=== PATIENT | male | born 1975 | race Caucasian/White ===

== ENCOUNTER 2017-08-02 14:59 | Outpatient (RCR) | payer OTHER, SELFPAY ==
--- NOTE | 2017-08-02 16:08 | HP.PTEVAL ---
Patient's Visit Information KAREN JONES is a 42 year old M referred to Physical Therapy by Braden Dinero DO DR.[email or web address] with a diagnosis of Left Adhesive Capsulitis. Date of Evaluation: 08/02/17 Physical Therapist: Amalia Ramos - Visit Plan Plan: Hold-will follow up as needed - Subjective Subjective: Left shoulder pain insidious onset- had lots of pain and poor mobility for 3 months. Had cortisone injection 07/[address] Dinero. Is a lot better- the mobility is better. Brother is a PT in [place] who wants him to improve motion. Feels that he is 90% better since injection. 10% is aching here and there. Pain is located in the shoulder no radiating pain at this point. Yoga-@ [employer] (basic vinyasa flow tries to do 1-2x a week) and home- martial arts (2x a week)- grappling- kettle bells (2x a week). Worst: 3/10 Agg: arm overhead. Eases: cortizone injection. Best: 0/10 most of the time. Sleep: not since the injection. 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 - Objective Posture: good throughout. Palpation: not tender to touch. ROM: Shoulder: WFL, Elbow: WNL. Strength: 5/5 throughout. Impingement: positive, Empty Can: negative - Rehabilitation Potential Physical Therapy Diagnosis: He has good ROM strength and muscular endurance in the left UE Rehabilitation Potential: Good - Anticipated Interventions Thank you for the opportunity to evaluate your patient. For Medicare and Medicare HMO plans, please review the plan of care and approve it. It will need to be FAXED BACK to us at [phone] for Medicare purposes. Please let me know if there are questions or concerns regarding this plan of care. Physician Signature: Date:
--- NOTE | 2017-09-18 14:28 | HP.PTDCNRP_ITS ---
HP - Discharge Summary (1) - Patient Information KAREN JONES was seen in my office for initial evaluation on 08/02/17. The following Plan of Care was established for this patient: This patient was last seen in our office . Pertinent comments regarding their Physical therapy will appear below: Patient has not attended physical therapy in over 4 weeks- appropriate to be d/ c at this time. At this point I will be discontinuing this patient from physical therapy. I would be happy to see this patient again in the future if found appropriate by the physician. Thank you! Amalia Ramos
== END 2017-08-02 19:00 | disposition home or self-care (01) ==
LOC: PT 14:59
PROVIDERS: Family Provider Internal Medicine; PCP Internal Medicine; Visit Provider Orthopaedic Surgery
DX: M75.02 Adhesive capsulitis of left shoulder (principal)
CPT/HCPCS: 97110; 97161

== ENCOUNTER → 2021-10-04 | Outpatient (CLI) | payer OTHER, SELFPAY ==
[2021-10-04 18:48] LABS: ALB/GLOB Ratio 1.4 RATIO (0.9-2.4); AST(SGOT) 13 U/L (15-37); Alanine Aminotransfer ALT/SGPT 24 U/L (16-61); Albumin, Serum 4.2 g/dL (3.2-5.0); Alkaline Phosphatase 68 U/L (45-117); Anion Gap 7 (5-15); BUN 26 mg/dL (7-18); BUN/Creat Ratio 24.5 RATIO (10-20); Calcium,Total 8.4 mg/dL (8.5-10.1); Chloride 105 mmol/L (98-107); Creatinine, Serum 1.06 mg/dL (0.70-1.30); EST Glomerular Filtration Rate 79 mL/min (>60); Est Glom Filt Rate - Afr Amer 96 mL/min (>60); Glucose 104 mg/dL (74-106); Protein, Total 7.2 g/dL (6.4-8.2); Sodium Level 139 mmol/L (136-145); Thyroid Stim Hormone (TSH) 1.05 uIU/mL (0.358-3.74)
== END | disposition home or self-care (01) ==
LOC: MTLAB 16:28
PROVIDERS: PCP Internal Medicine; Referring Provider Internal Medicine; Visit Provider Internal Medicine
DX: F41.9 Anxiety disorder, unspecified (principal)
CPT/HCPCS: 36415; 80053; 84443

== ENCOUNTER → 2022-07-29 | Outpatient (CLI) | payer OTHER, SELFPAY ==
[2022-07-29 15:14] LABS: Hematocrit 47.6 % (40-54); Hemoglobin 15.6 g/dL (13.0-16.5)
[2022-07-29 15:52] LABS: ALB/GLOB Ratio 1.2 RATIO (0.9-2.4); AST(SGOT) 24 U/L (15-37); Alanine Aminotransfer ALT/SGPT 33 U/L (16-61); Albumin, Serum 4.1 g/dL (3.2-5.0); Alkaline Phosphatase 72 U/L (45-117); Anion Gap 9 (5-15); BUN 22 mg/dL (7-18); BUN/Creat Ratio 21.2 RATIO (10-20); Calcium,Total 9.1 mg/dL (8.5-10.1); Chloride 105 mmol/L (98-107); Cholesterol 228 mg/dL (200); Creatinine, Serum 1.04 mg/dL (0.70-1.30); EST Glomerular Filtration Rate 81 mL/min (>60); Est Glom Filt Rate - Afr Amer 98 mL/min (>60); Estradiol 19.5 pg/mL; Follicle Stimulating Hormone 3.7 mIU/mL; Globulin 3.5 g/dL (2.2-4.2); Glucose 94 mg/dL (74-106); Hemoglobin A1c 5.6 % (3.8-5.6); High Density Lipoprotein 68 mg/dL; Luteinizing Hormone 3.3 mIU/mL; PSA,Total- Diagnostic 3.26 ng/mL (0.0-4.0); Potassium 3.9 mmol/L (3.5-5.1); Prolactin 7.7 ng/mL; Protein, Total 7.6 g/dL (6.4-8.2); Sodium Level 140 mmol/L (136-145); Thyroid Stim Hormone (TSH) 1.21 uIU/mL (0.358-3.74); Triglycerides 175 mg/dL; Very Low Density Lipoprotein 35 mg/dL (5-40)
[2022-07-29 16:11] LABS: Vitamin B12 393 pg/mL (211-911); Vitamin D,25 Hydroxy 88.2 ng/mL
[2022-08-03 13:08] LABS: Testosterone, % Free 1.62 % (1.50-4.20); Testosterone, Free 11.87 ng/dL (5.00-21.00)
[2022-08-03 20:36] LABS: Sex Hormone-binding Globulin 68.2 nmol/L (16.5-55.9); Testosterone, Total 733 ng/dL (264-916)
== END | disposition home or self-care (01) ==
LOC: MTLAB 11:26
PROVIDERS: PCP Internal Medicine; Referring Provider Registered Nurse; Visit Provider Registered Nurse
DX: Z00.00 Encounter for general adult medical examination without abnormal findings (principal); R68.82 Decreased libido; R63.5 Abnormal weight gain; E29.1 Testicular hypofunction; R53.83 Other fatigue; Z12.5 Encounter for screening for malignant neoplasm of prostate
CPT/HCPCS: 36415; 80053; 80061; 82306; 82533; 82607; 82627; 82670; 83001; 83002; 83036; 84146; 84153; 84270; 84402; 84403; 84443; 85014; 85018; 82626

== ENCOUNTER 2022-12-08 15:19 | Emergency (ER) | payer OTHER, SELFPAY ==
[2022-12-08 15:21] VITALS: BP 152/97; PULSE 66; RESP 18; TEMP 36.1; O2SAT 99; BMI 31.6
--- NOTE | 2022-12-08 15:55 | RAD_ITS ---
STUDY: X-RAY - RIGHT HAND REASON FOR EXAM: Male, 47 years old. finger injury TECHNIQUE: 3 view(s) of the hand. COMPARISON: None. FINDINGS: Normal radiocarpal articulation. Normal distal radioulnar joint. Normal visualized carpal bones. Normal carpal articulations Normal carpometacarpal articulation of the thumb. Normal second through fifth carpometacarpal joints. Normal metacarpi. Normal metacarpophalangeal joint of the thumb. Normal interphalangeal joint of the thumb. Normal proximal and distal phalanges of the thumb. Normal metacarpophalangeal joints of the second through fifth fingers. Normal proximal and distal interphalangeal joints of the second through fifth fingers. Normal phalanges of the second through fifth fingers. Soft tissue swelling distal index finger. No radiodense foreign body noted. RAD/Hand Min 3 Views IMPRESSION: No fracture or radiodense foreign body noted. Soft tissue swelling distal index finger. Electronically Signed: Kota Golden MD at 16:20 EDT ,
[2022-12-08] MEDS: Lidocaine 1% (20 ml mdv) 20 ML Vial INFILT (15:59)
--- NOTE | 2022-12-08 17:03 | EX.ED.DYSGE1 ---
HPI <JOE Jeff - Last Filed: 12/08/22 17:10> History of Present Illness Chief Complaint: Laceration Narrative Narrative: 47-year-old male with no significant medical history presents to the emergency department after sustaining a laceration to the tip of the right second finger. Patient states he got caught between a hinge on a chair. He is unsure of his tetanus vaccination. He has full range of motion of the finger. He denies any other injury. No numbness or tingling PFSH <JOE Jeff - Last Filed: 12/08/22 17:10> PFSH Medical History no medical history Home Medications Kenalog 10 mg/mL suspension for injection (triamcinolone acetonide) 2 mg (0.2 mL) intra-articular ONCE #0.2 mL 07/10/17 [Clinic Last Taken Unknown] desvenlafaxine succinate 25 mg tablet,extended release 24 hr (Pristiq) 25 mg PO DAILY 04/08/22 [History Last Taken Unknown] hydrocodone-acetaminophen 5-325mg 5mg-325mg 1 tab PO Q4H PRN PRN Pain 2 days #6 TABLETS 12/08/22 [Rx Last Taken Unknown] Allergy/AdvReac Type Severity Reaction Status Date / Time nabumetone Allergy Mild Hives Verified 12/08/22 15:20 Social History Smoking Status: Never smoker alcohol intake: current alcohol intake frequency: 0-2 drinks per day substance use type: does not use what type of physical activity do you participate in: other details: Cardio and weight lifting frequency: 3-4 times per week ROS <JOE Jeff - Last Filed: 12/08/22 17:10> ROS ED ROS Narrative Constitutional: Negative for fever, chills, weight loss, weakness Eyes: Negative for vision loss, vision change, double vision ENT: Negative for any sore throat, ear pain, congestion Cardiovascular: Negative for any chest pain, tightness, palpitations Respiratory: Negative for any cough, sputum production, hemoptysis, dyspnea, dyspnea on exertion, orthopnea Gastrointestinal: Negative for any abdominal pain, nausea, vomiting, diarrhea, constipation, blood in stool, blood in vomit : Negative for any urinary frequency, dysuria, retention, blood in urine Muscle skeletal: Negative for any muscle joint pain, stiffness, myalgias, arthralgias, neck pain, back pain. Positive for right second finger pain Neurological: Negative for any headache, syncope, numbness or tingling, dizziness Skin: Negative for any rashes, lumps, itching, abrasion. Laceration of the right second finger Psychiatric: Negative for any depression, anxiety, stress, suicidal ideation, homicidal ideation Hematologic: Negative for any easy bruising, excessive bruising, easy bleeding Allergies: Negative for any eczema, hives, rash EXAM <JOE Jeff - Last Filed: 12/08/22 17:10> Physical Exam Narrative Exam Narrative: Vital signs reviewed. Extremities: No peripheral edema, no signs of gross trauma or deformity. Active full range of motion of all extremities. Patient has a you like laceration across the palmar aspect of the right second finger along the area of the DIP joint. Patient is able to flex and extend the distal tip of the finger. There is no neurological focal deficit. There is two-point sensation. Total lacerations 2.5 cm in a U-shaped. Neuro: Cranial nerves II through XII intact, no focal neurological deficits. Skin: Clean dry and intact with no rash, purpura, petechiae, vesicles or pustules. Backs/flank: No CVA tenderness, no midline spinal tenderness, no deformity. Psych: Normal mood and affect. No SI, HI or acute psychosis. Const Vital Signs: 12/08/22 15:21 Temperature 96.9 F L Temperature Source Temporal Pulse Rate 66 Respiratory Rate 18 Blood Pressure 152/97 H Blood Pressure Mean 115 Pulse Ox 99 Positive well nourished and well developed General Appearance ED: well developed <Dr. Sher Saucedo, DO - Last Filed: 12/08/22 18:05> Physical Exam Const Vital Signs: 12/08/22 15:21 Temperature 96.9 F L Temperature Source Temporal Pulse Rate 66 Respiratory Rate 18 Blood Pressure 152/97 H Blood Pressure Mean 115 Pulse Ox 99 MDM <JOE Jeff - Last Filed: 12/08/22 17:10> MDM Radiography Diagnostic Testing: Clinical Impression(s) from Imaging Studies Hand X-Ray 12/08/22 15:55 IMPRESSION: No fracture or radiodense foreign body noted. Soft tissue swelling distal index finger. Electronically Signed: Kota Golden MD at 16:20 EDT Reading Location ID and State: [facility] / [place] , Service support , Treatment and Re-Evaluation :: Patient appears generally well, patient appears nontoxic, vital signs are stable. Patient presents to the emergency department after sustaining a laceration to the distal tip of the right second finger. This area did require an x-ray concerning for any open fracture. X-rays of the right hand show no acute fracture, no foreign body. The patient's tetanus vaccination was updated today. I was able to anesthetize the right index finger with lidocaine, sterile gloves, sterile drapes were used. I did place 7 simple interrupted sutures of 4-0 Ethilon. Patient tolerated well. Edges approximate nicely. Patient will be given a finger splint. We will have the sutures moved in 7 to 10 days. He was given strict return precaution return for any redness. At this time, patient stable for discharge <Dr. Sher Saucedo, DO - Last Filed: 12/08/22 18:05> [facility] Narrative Medical decision making narrative: I have personally performed a face to face assessment of the patient and have reviewed the [facility]ENT Note. I performed a substantive portion of the visit including all aspects of the following. My muniz findings include: History: Patient presents with laceration to right index finger that occurred today. Patient states he was working with a fold up cot when his finger got pinched between the metal rail and the leg. Patient was sitting on the cot at that time. Patient admits to some mild pain over the distal phalanx of his right index finger. Patient is unsure of his last tetanus. Patient states the bleeding stopped after several minutes of pressure. Patient denies any paresthesias or weakness. Patient denies any other injuries. Exam: There is a 2.5 cm U-shaped laceration over the palmar aspect of the distal phalanx of the right index finger. There is mild gapping of the wound margins. There are no foreign bodies noted. There is no bony crepitance or step-off. Strength is 5/5 in flexion extension of the MP, PIP, and DIP joints. Sensation was intact to light touch in all digits. Capillary refill was less than 2 seconds in all digits. Medical Decision Making: Differential diagnosis includes open fracture of the distal phalanx and laceration. X-rays of the right hand will be obtained to assess for fracture. X-rays of the right hand were obtained. There are 3 views. On my independent interpretation, there is no acute fracture or foreign body noted. There is no dislocation noted. Radiologist also interpreted the x-rays and agrees. The wound was cleaned and irrigated with copious amounts normal saline. The wound was anesthetized with 1% plain lidocaine via digital block. The wound was closed by the VINCENT under my supervision. Patient tolerated procedure well. Bacitracin dressing was applied. Patient was given tetanus booster. Patient was instructed to follow-up with his primary care physician in 7 days for wound recheck and suture removal. Patient understood and was agreeable with plan. All questions were answered. Radiography Diagnostic Testing: Clinical Impression(s) from Imaging Studies Hand X-Ray 12/08/22 15:55 IMPRESSION: No fracture or radiodense foreign body noted. Soft tissue swelling distal index finger. Electronically Signed: Kota Golden MD at 16:20 EDT Reading Location ID and State: [address] [place] [address] , Service support , Procedures <JOE Jeff - Last Filed: 12/08/22 17:10> Lacerations Right index finger laceration: Length: 2.5 cm Depth: Skin Shape: Linear Prep: Sterile Conditions and Shure-Clens Laceration repair: Irrigated and Lidocaine Irrigated (ml): 100 Number of Sutures/[place]: 7 Suture Information: Simple and 4-0 Comment: Sterile gloves, sterile drapes were used Discharge Plan Triage Chief Complaint: Laceration ED Midlevel Provider: Milan Melvin ED Provider: Sher Saucedo Dx/Rx/DC Orders Clinical Impression: Finger laceration Instructions: ED Laceration, Hand: All Closures Prescriptions: New hydrocodone-acetaminophen 5-325 mg tablet 1 tab PO Q4H PRN PRN (Reason: Pain) 2 Days Qty: 6 0RF No Action Kenalog 10 mg/mL suspension for injection 10 mg/mL suspension 2 mg INTRAARTIC ONCE Qty: 0.2 0RF desvenlafaxine succinate [Pristiq] 25 mg tablet extended release 24 hr 25 mg PO DAILY Primary Care Provider: Rosalia Lerma Referrals: Rosalia Lerma DO [Primary Care Provider] - Activity Restrictions/Additional Instructions: Sutures need to be removed in 7 to 10 days. Return for any worsening redness. Use finger splint while up and about during the day. Keep covered over the next 5 days. Keep clean and dry. Disposition Disposition: Home, Self Care
[2022-12-08] MEDS: Diphth,Pertuss(Acell),Tet Vac 0.5 ML Vial IM (17:33)
== END 2022-12-08 17:38 | disposition home or self-care (01) ==
PROVIDERS: Emergency Provider Emergency Medicine; PCP Internal Medicine; Visit Provider Emergency Medicine
DX: S61.210A Laceration without foreign body of right index finger without damage to nail, initial encounter (principal); W23.0XXA Caught, crushed, jammed, or pinched between moving objects, initial encounter; Z23 Encounter for immunization
CPT/HCPCS: 12001; 73130; 90471; 90715; 99283

== ENCOUNTER → 2023-04-21 | Outpatient (CLI) | payer OTHER, SELFPAY ==
[2023-04-21 10:15] LABS: Absolute Lymphocyte Count 1.61 X10^3/uL (0.83-4.51); Absolute Neutrophil Count 3.2 X10^3/uL (2.0-7.7); Basophil# 0.04 X10^3/uL; Basophil% 0.7 % (0-1); Eosinophil# 0.13 X10^3/uL; Eosinophils% 2.3 % (0-5); Hematocrit 45.7 % (40-54); Lymphocyte # 1.61 X10^3/ul (0.83-4.51); Lymphocyte % 28.9 % (19-41); Mean Corp Hgb Conc 32.8 g/dL (32-36); Mean Corpuscular Hgb 28.2 pg (27.0-32.0); Mean Corpuscular Volume 86.1 fL (80-94); Mean Platelet Vol. 11.4 fl (6.2-12.0); Monocyte# 0.54 X10^3/uL; Monocyte% 9.7 % (0-10); NRBC Flagged by Analyzer 0 % (0-5); Neutrophil # 3.23 X10^3/uL (2.7-7.7); Platelet Count 255 K/mm3 (150-450); RBC Distribution Width CV 12.9 % (11.6-14.6); Red Blood Count 5.31 M/mm3 (4.6-6.2); White Blood Count 5.6 K/mm3 (4.4-11.0)
[2023-04-21 10:32] LABS: Anion Gap 1 (5-15); BUN 22 mg/dL (7-18); BUN/Creat Ratio 21.6 RATIO (10-20); Calcium,Total 8.7 mg/dL (8.5-10.1); Chloride 107 mmol/L (98-107); Cholesterol 212 mg/dL (200); Creatinine, Serum 1.02 mg/dL (0.70-1.30); EST Glomerular Filtration Rate 82 mL/min (>60); Est Glom Filt Rate - Afr Amer 100 mL/min (>60); Glucose 98 mg/dL (74-106); High Density Lipoprotein 62 mg/dL; Potassium 4.1 mmol/L (3.5-5.1); Sodium Level 137 mmol/L (136-145); Triglycerides 126 mg/dL; Very Low Density Lipoprotein 25 mg/dL (5-40)
[2023-04-21 10:52] LABS: Hemoglobin A1c 5.5 % (3.8-5.6)
== END | disposition home or self-care (01) ==
PROVIDERS: PCP Internal Medicine
DX: F42.9 Obsessive-compulsive disorder, unspecified (principal)
CPT/HCPCS: 36415; 80048; 80061; 83036; 85025

== ENCOUNTER → 2023-05-15 | Outpatient (CLI) | payer OTHER, SELFPAY ==
--- NOTE | 2023-05-15 17:34 | MRI_ITS ---
STUDY: MRI LEFT KNEE REASON FOR EXAM: Male, 48 years old. Left knee pain, inside of left knee. TECHNIQUE: Standardized fat and water weighted pulse sequences were obtained in all 3 orthogonal planes. COMPARISON: Left knee radiographs dated 03/17/2023. FINDINGS: There is a horizontal-oblique undersurface tear of the posterior horn of the medial meniscus (sagittal PD series 5 images 33-38). Normal hyaline cartilage of the medial femorotibial compartment. Normal medial femoral condyle and tibial plateau. Normal medial collateral ligamentous complex (MCL). Normal distal semimembranosus, gracilis and semitendinosus tendons. Normal lateral meniscus. Normal hyaline cartilage of the lateral femorotibial compartment. Normal lateral femoral condyle and tibial plateau. Normal proximal tibiofibular articulation. Normal lateral collateral (fibular) ligament. Normal popliteus tendon. Normal biceps femoris tendon. Normal anterior cruciate ligament (ACL). Normal posterior cruciate ligament (PCL). There is low-grade chondromalacia along the patellar apex, with underlying subchondral cyst formation (axial T2 series 3 image 23). Normal congruent patellofemoral articulation. Normal medial and lateral patellar retinaculum. Normal quadriceps tendon. Normal patellar tendon. Normal Hoffa''s fat pad. There is a small joint effusion. There is no popliteal cyst. The soft tissues are unremarkable. There is no acute fracture. MRI/Lower Ext Joint Only (Routine) IMPRESSION: Horizontal-oblique undersurface tear of the posterior horn of the medial meniscus. Low-grade chondromalacia along the patellar apex, with underlying subchondral cyst formation. Small joint effusion. Electronically Signed: Lobo Astudillo MD at 14:11 EST ,
== END | disposition home or self-care (01) ==
LOC: MRI 07:34
PROVIDERS: PCP Internal Medicine
DX: M25.562 Pain in left knee (principal)
CPT/HCPCS: 73721

== ENCOUNTER → 2024-03-25 | Outpatient (CLI) | payer OTHER, SELFPAY ==
--- NOTE | 2024-03-25 13:30 | MRI_ITS ---
STUDY: MRI RIGHT KNEE REASON FOR EXAM: Male, 49 years old. Pain, rule out medial meniscal tear. TECHNIQUE: Standardized fat and water weighted pulse sequences were obtained in all 3 orthogonal planes. COMPARISON: Right knee radiographs dated 03/11/2024. FINDINGS: There is a horizontal-oblique undersurface tear of the posterior horn of the medial meniscus (sagittal PD series 4 images 11-12). Normal hyaline cartilage of the medial femorotibial compartment. Normal medial femoral condyle and tibial plateau. There is ligamentous thickening of the MCL consistent with a remote MCL sprain. Normal distal semimembranosus, gracilis and semitendinosus tendons. Normal lateral meniscus. Normal hyaline cartilage of the lateral femorotibial compartment. Normal lateral femoral condyle and tibial plateau. Normal proximal tibiofibular articulation. Normal lateral collateral (fibular) ligament. Normal popliteus tendon. Normal biceps femoris tendon. Normal anterior cruciate ligament (ACL). Normal posterior cruciate ligament (PCL). There is slight lateral patellar subluxation. Normal hyaline cartilage of the patellofemoral compartment. Normal medial and lateral patellar retinaculum. Normal quadriceps tendon. Normal patellar tendon. Normal Hoffa''s fat pad. There is a small joint effusion. There is no popliteal cyst. The soft tissues are unremarkable. The otherwise visualized osseous structures are unremarkable. MRI/Lower Ext Joint Only (Routine) IMPRESSION: Horizontal-oblique undersurface tear of the posterior horn of the medial meniscus. Remote MCL sprain. Slight lateral patellar subluxation. Small joint effusion. Electronically Signed: Lobo Astudillo MD at 11:54 EDT ,
== END | disposition home or self-care (01) ==
PROVIDERS: PCP Internal Medicine; Referring Provider Orthopaedic Surgery Sports Medicine; Visit Provider Orthopaedic Surgery Sports Medicine
DX: M25.561 Pain in right knee (principal)
CPT/HCPCS: 73721

== ENCOUNTER → 2024-10-28 | Outpatient (CLI) | payer OTHER, SELFPAY ==
[2024-10-28 18:07] LABS: PSA,Total- Diagnostic 3.96 ng/mL (0.00-4.00)
== END | disposition home or self-care (01) ==
LOC: LAB 16:16
PROVIDERS: PCP Internal Medicine; Referring Provider Urology; Visit Provider Urology
DX: R97.20 Elevated prostate specific antigen [PSA] (principal)
CPT/HCPCS: 36415; 84153